=== PATIENT | male | born 1995 | race Caucasian/White ===

== ENCOUNTER 2022-08-31 00:35 | Inpatient (IN) | payer OTHER ==
[2022-08-31] VITALS (8 sets, daily range): BP systolic 93–142; BP diastolic 40–73
[~2022-08-31] VITALS: Ht 175.3 cm; Wt 137.0 kg
[2022-08-31 01:09] LABS: BASO # 0.1 10*3/uL (0.0-0.1); BASO % 0.4 % (0.0-1.0); EOS # 0.1 10*3/uL (0.0-0.4); EOS % 0.7 % (1.0-4.0); HEMATOCRIT 47.6 % (42.0-52.0); LYMPH # 2.4 10*3/uL (1.3-4.4); LYMPH % 13.5 % (27.0-41.0); MEAN CELL VOLUME 92.1 fl (80.0-94.0); MEAN CORPUSCULAR HGB 30.2 pg (27.0-31.0); MEAN CORPUSCULAR HGB CONC 32.8 g/dl (33.0-37.0); MEAN PLATELET VOLUME 10.2 fl (9.6-12.3); MONO # 1.3 10*3/uL (0.1-1.0); MONO % 7.4 % (3.0-9.0); NEUT # 13.8 10*3/uL (2.3-7.9); NEUT % 77.7 % (47.0-73.0); PLATELET COUNT AUTOMATED 279 10*3/uL (130-400); RED BLOOD COUNT 5.17 10*6/uL (4.50-5.90); RED CELL DISTRI WIDTH 13.3 % (0-14.5); WHITE BLOOD COUNT 17.8 10*3/uL (4.8-10.8)
[2022-08-31 01:36] LABS: ALKALINE PHOSPHATASE 106 U/L (45-117); BUN 10 mg/dl (7-24); CHLORIDE 109 mmol/L (98-107); CREATININE 0.95 mg/dL (0.70-1.30); POTASSIUM 4.1 mmol/L (3.5-5.1); SGPT/ALT 27 U/L (12-78); SODIUM 143 mmol/L (136-145); TOTAL PROTEIN 7.3 gm/dL (6.4-8.2)
[2022-08-31] MEDS ORDERED: PROVENTIL HFA6.7 GM INH (04:49)
[2022-08-31] MEDS ORDERED: SERTRALINE HYDR50 MG PO (04:50)
[2022-08-31] MEDS ORDERED: LEVOTHYROXINE112 MCG PO (04:50)
[2022-08-31 12:07] LABS: ARTERIAL BLOOD GAS PH 7.385 (7.35-7.45); ARTERIAL BLOOD GAS PO2 74.3 (80-90)
[2022-08-31 12:09] LABS: ABG BASE EXCESS -5.8 mmol/L (-2.0-2.0)
[2022-08-31] MEDS ORDERED: ROSUVASTATIN CA10 MG PO (20:23)
[2022-09-01] VITALS: BP 114/57
[2022-09-01 06:49] LABS: HEMATOCRIT 44.9 % (42.0-52.0); MEAN CELL VOLUME 92.2 fl (80.0-94.0); MEAN CORPUSCULAR HGB 30.6 pg (27.0-31.0); MEAN CORPUSCULAR HGB CONC 33.2 g/dl (33.0-37.0); MEAN PLATELET VOLUME 10.9 fl (9.6-12.3); PLATELET COUNT AUTOMATED 296 10*3/uL (130-400); RED BLOOD COUNT 4.87 10*6/uL (4.50-5.90); RED CELL DISTRI WIDTH 13.8 % (0-14.5); WHITE BLOOD COUNT 22.4 10*3/uL (4.8-10.8)
[2022-09-01 06:50] LABS: MANUAL DIFF REFLEX YES
[2022-09-01 07:08] LABS: ALKALINE PHOSPHATASE 86 U/L (45-117); BUN 12 mg/dl (7-24); CHLORIDE 110 mmol/L (98-107); CREATININE 0.83 mg/dL (0.70-1.30); POTASSIUM 4.7 mmol/L (3.5-5.1); SGPT/ALT 23 U/L (12-78); SODIUM 141 mmol/L (136-145); TOTAL PROTEIN 6.6 gm/dL (6.4-8.2)
[2022-09-01 07:14] LABS: THYROID STIM HORMONE (HS) 0.534 uIU/ml (0.358-4.75)
[2022-09-01 07:39] LABS: PLATELET SUFFICIENCY NORMAL (NORMAL); POLYCHROMASIA SLIGHT; TOTAL CELLS COUNTED 100 #CELLS
[2022-09-01 08:00] VITALS: BP 137/69
[2022-09-01 12:00] VITALS: BP 115/47
[2022-09-01 16:00] VITALS: BP 112/48
[2022-09-01] MEDS ORDERED: PROAIR DIGIHAL90 MCG INH (17:26)
[2022-09-01] MEDS ORDERED: FLOVENT HFA12 G1 INH (17:26)
[2022-09-01 20:00] VITALS: BP 125/66
[2022-09-02] VITALS: BP 128/70
[2022-09-02 05:00] LABS: BUN 17 mg/dl (7-24); CHLORIDE 108 mmol/L (98-107); POTASSIUM 4.4 mmol/L (3.5-5.1); SODIUM 140 mmol/L (136-145)
[2022-09-02 05:01] LABS: CREATININE 0.81 mg/dL (0.70-1.30)
[2022-09-02 06:14] LABS: HEMATOCRIT 44.3 % (42.0-52.0); MEAN CELL VOLUME 93.1 fl (80.0-94.0); MEAN CORPUSCULAR HGB 30.5 pg (27.0-31.0); MEAN CORPUSCULAR HGB CONC 32.7 g/dl (33.0-37.0); MEAN PLATELET VOLUME 11.3 fl (9.6-12.3); PLATELET COUNT AUTOMATED 305 10*3/uL (130-400); RED BLOOD COUNT 4.76 10*6/uL (4.50-5.90); RED CELL DISTRI WIDTH 13.9 % (0-14.5); WHITE BLOOD COUNT 23.8 10*3/uL (4.8-10.8)
[2022-09-02 06:22] LABS: MANUAL DIFF REFLEX YES
[2022-09-02 06:51] LABS: TOTAL CELLS COUNTED 100 #CELLS
[2022-09-02 06:52] LABS: PLATELET SUFFICIENCY NORMAL (NORMAL)
[2022-09-02 08:00] VITALS: BP 123/76
[2022-09-02 12:00] VITALS: BP 122/67
[2022-09-02 16:00] VITALS: BP 118/67
[2022-09-02 20:00] VITALS: BP 114/64
[2022-09-03] VITALS: BP 118/63
[2022-09-03 09:32] VITALS: BP 120/64
[2022-09-03 16:00] VITALS: BP 115/66
[2022-09-03 20:00] VITALS: BP 111/66
[2022-09-04] VITALS: BP 126/73
[2022-09-04 07:42] LABS: HEMATOCRIT 48.7 % (42.0-52.0); MEAN CELL VOLUME 92.4 fl (80.0-94.0); MEAN CORPUSCULAR HGB 30.4 pg (27.0-31.0); MEAN CORPUSCULAR HGB CONC 32.9 g/dl (33.0-37.0); MEAN PLATELET VOLUME 10.7 fl (9.6-12.3); PLATELET COUNT AUTOMATED 339 10*3/uL (130-400); RED BLOOD COUNT 5.27 10*6/uL (4.50-5.90); RED CELL DISTRI WIDTH 13.9 % (0-14.5); WHITE BLOOD COUNT 22.3 10*3/uL (4.8-10.8)
[2022-09-04 07:46] LABS: MANUAL DIFF REFLEX YES
[2022-09-04 08:00] VITALS: BP 108/73
[2022-09-04 08:00] LABS: BUN 18 mg/dl (7-24); CHLORIDE 105 mmol/L (98-107); CREATININE 0.88 mg/dL (0.70-1.30); POTASSIUM 4.4 mmol/L (3.5-5.1); SODIUM 138 mmol/L (136-145)
[2022-09-04 08:07] LABS: ATYPICAL LYMPHS 1 % (0-0); TOTAL CELLS COUNTED 100 #CELLS
[2022-09-04 08:08] LABS: PLATELET SUFFICIENCY NORMAL (NORMAL); POLYCHROMASIA SLIGHT; VACUOLATION OF NEUTROPHILS SLIGHT
[2022-09-04 12:00] VITALS: BP 127/81
[2022-09-04] MEDS ORDERED: PREDNISONE10 MG PO (12:31)
== END 2022-09-04 16:52 | disposition home or self-care (01) | DRG 871 ==
LOC: ED 00:35 → EDHOLD 05:08 → 5E 05:08
PROVIDERS: Emergency Medicine; Internal Medicine; Student in an Organized Health Care Education/Training Program; ADMIT Internal Medicine; ATTEND Internal Medicine
DX: A41.9 Sepsis, unspecified organism (principal); J18.9 Pneumonia, unspecified organism; J96.01 Acute respiratory failure with hypoxia; J45.41 Moderate persistent asthma with (acute) exacerbation; Z68.41 Body mass index [BMI] 40.0-44.9, adult; R65.20 Severe sepsis without septic shock; F41.9 Anxiety disorder, unspecified; F32.A Depression, unspecified; E87.8 Other disorders of electrolyte and fluid balance, not elsewhere classified; E66.01 Morbid (severe) obesity due to excess calories; E78.5 Hyperlipidemia, unspecified; E03.9 Hypothyroidism, unspecified; Z83.3 Family history of diabetes mellitus